=== PATIENT | female | born 1985 | race Caucasian/White ===

== ENCOUNTER 2020-04-18 06:46 | Outpatient (CLI) | payer BC, OTHER ==
[2020-04-18 13:04] LABS: BHCG - Serum Negative (NEGATIVE); Pregs Control Background? CLEAR/WHITE (CLR/WHITE); Pregs Control Bar Appear? YES (CONTROL BAR)
[2020-04-18 19:38] LABS: SARS-CoV-2 MS2 Positive; SARS-CoV-2 N Gene Negative; SARS-CoV-2 S Gene Negative; SARS-CoV-2 orf1ab Negative
== END 2020-04-18 06:47 | disposition home or self-care (01) ==
LOC: LABBT 06:46
PROVIDERS: ATTEND Student in an Organized Health Care Education/Training Program
DX: Z01.812 Encounter for preprocedural laboratory examination (principal); Z11.59 Encounter for screening for other viral diseases; J35.01 Chronic tonsillitis; J02.9 Acute pharyngitis, unspecified; J35.8 Other chronic diseases of tonsils and adenoids
CPT/HCPCS: 84703; 85014; 87635; U0003

== ENCOUNTER 2020-04-22 06:25 | Day surgery (SDC) | payer BC ==
[2020-04-18 10:07] VITALS: BMI 20.8
[2020-04-22] MEDS ORDERED: Ferric Subsulfate (ASTRINGYN) 8 ML VIAL ONE (06:52)
[2020-04-22] MEDS ORDERED: Fentanyl 250 MCG/5 ML VIAL ONE (07:27)
[2020-04-22] MEDS ORDERED: Acetaminophen 500 MG TAB ONE (07:30)
[2020-04-22] MEDS ORDERED: Dexamethasone 20 MG/5 ML VIAL ONE (10:08)
[2020-04-22] MEDS ORDERED: Lidocaine 1% PF 5 ML VIAL ONE (10:08)
[2020-04-22] MEDS ORDERED: PROPOFOL 200 MG/20 ML VIAL ONE (10:08)
[2020-04-22] MEDS ORDERED: Ketorolac Tromethamine 30 MG/ML VIAL ONE (10:08)
[2020-04-22] MEDS ORDERED: Ondansetron PF 4 MG/2 ML Vial ONE (10:08)
--- NOTE | 2020-04-23 13:52 | OP ---
DATE OF PROCEDURE: 04/22/2020 PROCEDURE PERFORMED: Tonsillectomy. PREOPERATIVE DIAGNOSIS: Recurrent tonsillitis. POSTOPERATIVE DIAGNOSIS: Recurrent tonsillitis and tonsillar hypertrophy. PERMIT: Procedures, benefits and risks including those of bleeding, infection, injury to anesthesia, allergic reaction, and recurrent oropharyngeal bleeding causing return to operating room and cautery were discussed with the patient and family, who expressed understanding of the information and consent form was signed and witnessed. The paper copy of the consent form is not available for review in the paper chart. INDICATIONS: Patient presenting to the clinic with acute tonsillitis, requiring antibiotic as well as chronic tonsillitis and pain is well controlled. DESCRIPTION OF OPERATION: The patient was brought to the operating room, laid supine on the operating room table. Anesthesia was induced. A complete time-out was performed before commencement of the surgical procedure. The table was turned 90 degrees. The patient was suspended using a Elijah-Jasiel mouth gag. A red rubber catheter was used to place in the nares and used to examine the nasopharynx. Attention was turned to the right tonsil. The tonsil was removed first by incising the anterior pillar and then dissecting from its inferior fossa of bridging vessels and fibers were cauterized with the Bovie on a setting of 15, so was removed anatomically in its entirety. Hemostasis was achieved using suction cautery. Attention was turned to the left tonsil. Left tonsil was removed in the identical manner. The nasopharynx was irrigated and suctioned. The stomach contents were suctioned. The patient was turned back to anesthesia for emergence. Job ID: [id number]
== END 2020-04-22 12:20 | disposition home or self-care (01) ==
LOC: SDC 06:25
PROVIDERS: ATTEND Student in an Organized Health Care Education/Training Program
PROC: 0CTPXZZ Resection of Tonsils, External Approach (ICD-10-PCS; principal; 2020-04-22)
DX: J03.91 Acute recurrent tonsillitis, unspecified (principal); J35.01 Chronic tonsillitis; J35.8 Other chronic diseases of tonsils and adenoids; Z79.899 Other long term (current) drug therapy; Z88.2 Allergy status to sulfonamides; Z91.011 Allergy to milk products
CPT/HCPCS: 88304; J0690; J1100; J1885; J2001; J2405; J2704; J3010